=== PATIENT | male | born 1980 | race Hispanic/Latino ===

== ENCOUNTER 2025-04-23 11:10 | Outpatient (CLI) | payer OTHER ==
[2025-04-23 12:44] LABS: #Basophils Less than 0.03 10x3/uL (0.0-0.2); #Eosinophils 0.17 10x3/uL (0.0-0.7); #Monocytes 0.52 10x3/uL (0.11-0.59); #Neutrophils 4.12 10x3/uL (1.40-6.50); %Basophils 0.3 % (0.0-1.0); %Eosinophils 2.4 % (0.0-10.0); %Lymphocytes 32.0 % (21.0-51.0); %Monocytes 7.3 % (0.0-10.0); %Neutrophils 57.7 % (42.0-75.0); Hematocrit 44.4 % (42.0-52.0); Hemoglobin 14.3 g/dL (14.0-18.0); Mean Corpuscular Hemoglobin 28.8 pg (27.0-31.0); Mean Corpuscular Volume 89.3 fL (78.0-98.0); Platelet Count 366 10x3/uL (130-400); Red Blood Cell (RBC) Count 4.97 mill/uL (4.70-6.10); White Blood Cell (WBC) Count 7.13 10x3/uL (4.8-10.8)
[2025-04-23 12:55] LABS: Anion Gap 12 mmol/L (10-20); BUN (Urea Nitrogen) 14 mg/dL (8.9-20.6); Calc. Creatinine Clearance 0 mL/min (70-130); Calcium 9.3 mg/dL (7.8-10.44); Carbon Dioxide 27 mmol/L (22-29); Chloride 101 mmol/L (98-107); Glucose 89 mg/dL (70-105); Potassium 4.4 mmol/L (3.5-5.1); Sodium 136 mmol/L (136-145)
== END 2025-04-23 11:11 | disposition home or self-care (01) ==
LOC: LABBT 11:10
PROVIDERS: ATTEND Orthopaedic Surgery
DX: Z01.818 Encounter for other preprocedural examination (principal); S46.011A Strain of muscle(s) and tendon(s) of the rotator cuff of right shoulder, initial encounter; S43.431A Superior glenoid labrum lesion of right shoulder, initial encounter
CPT/HCPCS: 80048; 85025; 93005; 93010

== ENCOUNTER 2025-04-26 08:31 | Day surgery (SDC) | payer OTHER ==
[2025-04-23 11:22] VITALS: BMI 26.9
[2025-04-26] MEDS ORDERED: CEFAZOLIN 2 GM VIAL ONE (09:37)
[2025-04-26] MEDS ORDERED: Ropivacaine 0.2% HCl/PF 20 ML ONE (10:04)
[2025-04-26] MEDS ORDERED: Ropivacaine 0.5% HCl/PF (150 MG/30 ML VIAL) ONE (10:04)
[2025-04-26] MEDS ORDERED: PROPOFOL 20 ML ONE (10:07)
[2025-04-26] MEDS ORDERED: Ondansetron PF 4 MG/2 ML Vial ONE (10:07)
[2025-04-26] MEDS ORDERED: Lidocaine 1% PF 5 ML VIAL ONE (10:07)
[2025-04-26] MEDS ORDERED: Rocuronium Bromide 10 MG/ML (10ML VIAL) ONE (10:07)
[2025-04-26] MEDS ORDERED: Lidocaine 1% (PF) 30 ML VIAL ONE (10:15)
[2025-04-26] MEDS ORDERED: HYDROcodone/Acetaminophen 10/325 mg Tablet PO PRN ×2 (11:00)
[2025-04-26] MEDS ORDERED: Ondansetron PF 4 MG/2 ML Vial IVP PRN (11:00)
[2025-04-26] MEDS ORDERED: Ropivacaine 0.2% 550 ML 550 ML NERVE BLCK SCH (11:00)
[2025-04-26] MEDS ORDERED: Ketorolac Tromethamine 30 MG (1 mL) VIAL ONE (11:55)
[2025-04-26] MEDS ORDERED: SUGAMMADEX SODIUM 200 MG/2 ML VIAL ONE ×2 (11:55→12:12)
[2025-04-26] MEDS ORDERED: Ketorolac Tromethamine 30 MG (1 mL) VIAL IVP SCH (12:00)
== END 2025-04-26 15:38 | disposition home or self-care (01) ==
LOC: SDC 08:31
PROVIDERS: ATTEND Orthopaedic Surgery
PROC: 3E0T3BZ Introduction of Anesthetic Agent into Peripheral Nerves and Plexi, Percutaneous Approach (ICD-10-PCS; principal; 2025-04-26)
PROC: 0RBJ4ZZ Excision of Right Shoulder Joint, Percutaneous Endoscopic Approach (ICD-10-PCS; principal; 2025-04-26)
PROC: 0LS30ZZ Reposition Right Upper Arm Tendon, Open Approach (ICD-10-PCS; principal; 2025-04-26)
DX: S43.431A Superior glenoid labrum lesion of right shoulder, initial encounter (principal); S46.011A Strain of muscle(s) and tendon(s) of the rotator cuff of right shoulder, initial encounter; S46.111A Strain of muscle, fascia and tendon of long head of biceps, right arm, initial encounter; F17.200 Nicotine dependence, unspecified, uncomplicated; I10 Essential (primary) hypertension; Z79.899 Other long term (current) drug therapy; X50.0XXA Overexertion from strenuous movement or load, initial encounter
CPT/HCPCS: A4306; C1713; J0169; J1885; J2250; J2405; J2704; J2795; J3010